=== PATIENT | male | born 1945 | race Caucasian/White ===

== ENCOUNTER 2017-06-05 08:35 | Day surgery (SDC) | payer OTHER ==
--- NOTE | 2017-05-30 08:57 | RAD REPORT ---
EXAM DESCRIPTION: RADOP - Outpt Chest Pa/Lat (2 Views) - 05/30/2017 8:46 am CLINICAL HISTORY: Chest pain. COMPARISON: 09/10/2013 FINDINGS: The lungs are clear. The heart is normal in size. No displaced fractures. Sternotomy wires present. IMPRESSION: No acute or concerning finding suspected.
[2017-05-30 09:34] LABS: Absolute Lymphocytes (CBC) 2.3 K/uL (0.7-4.9); Absolute Monocytes 0.7 K/uL (0.1-1.3); Absolute Neutrophil 4.7 K/uL (1.8-8.0); Basophils % 0.8 % (0-1.3); Eosinophils % 2.3 % (0-4.4); Hematocrit 46.8 % (39.6-49.0); Lymphocytes % 28.6 % (15.3-44.8); MCH 29.5 pg (27.0-35.0); MPV 8.3 fL (7.6-11.3); Monocytes % 8.5 % (3.3-12.3); RBC Red Blood Cell Count 5.37 M/uL (4.33-5.43)
[2017-05-30 10:01] LABS: Potassium 4.1 mEq/L (3.6-5.0)
--- NOTE | 2017-05-30 10:21 | EKG ---
Test Date: 2017-05-30 Test Time: 08:30:27 Clinical Educator: JODY MEASUREMENT RESULTS: Intervals: Rate: 52 MI: 220 QRSD: 98 QT: 434 QTc: 403 [place]: P: 17 MI: 220 QRS: -23 T: 75 INTERPRETIVE STATEMENTS: Sinus bradycardia with 1st degree AV block Nonspecific T wave abnormality Abnormal ECG Compared to ECG 07/27/2003 22:34:00 First degree AV block now present T-wave abnormality still present Electronically Signed On 05-30-17 10:21:15 CDT by Dmitri Fuller
[2017-06-05] MEDS ORDERED: Ringers Lactate 1,000 ML IV ONE (09:16)
[2017-06-05] MEDS ORDERED: CEFAZOLIN/SWI 1gm 1 GM/10 ML SYR ONE (09:16)
[2017-06-05] MEDS ORDERED: PROPOFOL 200 MG/20 ML VIAL IV ONE (09:58)
[2017-06-05] MEDS ORDERED: LIDOCAINE 2% MPF 5 ML VIAL ONE (09:58)
[2017-06-05] MEDS ORDERED: MIDAZOLAM HCL 2 MG/2 ML INJ ONE (09:58)
[2017-06-05] MEDS ORDERED: ONDANSETRON 4 MG/2 ML VIAL ONE (09:59)
[2017-06-05] MEDS ORDERED: ROCURONIUM 50 MG/5 ML VIAL IV ONE (10:00)
[2017-06-05] MEDS ORDERED: FENTANYL CITR 100 MCG/2 ML ONE (10:00)
[2017-06-05] MEDS ORDERED: GLYCOPYRROLATE 0.2 MG/ML SYR ONE (11:07)
[2017-06-05] MEDS: MEPERIDINE HCL 50 MG/ML AMP ONE ×2 (11:11→11:25)
[2017-06-05] MEDS ORDERED: NEOSTIGMINE 1 MG/ML -5 ML SYRINGE ONE (11:11)
[2017-06-05] MEDS ORDERED: MEPERIDINE HCL 25 MG/0.5 ML ONE (12:01)
[2017-06-05] MEDS ORDERED: HYDROCODONE/APAP 7.5/325 MG TAB ONE (12:48)
--- NOTE | 2017-06-05 21:33 | OP ---
Date of Procedure: 06/05/2017 Surgeon: Marco A Peterson MD Tar Chaser: ARNAV Fernandez. Preoperative Diagnosis: Ventral hernia. Postoperative Diagnosis: Ventral hernia. Procedure: Repair of ventral hernia with Ventralex mesh. Estimated Blood Loss: Minimal. Specimens: Hernia sac and contents. Findings: As above. Anesthesia: General. Complications: None. Disposition: The patient tolerated the procedure in stable condition and taken to Recovery in good g eneral condition. Procedure In Detail: The patient was brought to the OR, placed in the supine position, and general a nesthesia was begun. The patient was prepped and draped in the usual sterile fashion. Marcaine 0.5% was infiltrated locally. A #15 blade was used to make a 4-cm incision in the epigastrium over the h ernia. Subcutaneous tissue was divided. Hernia sac contents identified, excised with good fascial e dges obtained approximately 3 cm in diameter. A medium size Ventralex mesh placed and then #1 PDS us ed to close the fascial defect as well as secure the mesh in the standard fashion and the tails of th e mesh was cut. Wound was irrigated. Bleeding controlled with cautery. A 3-0 chromic was used to a pproximate the subcutaneous tissue and close the skin. Sterile dressing was applied. The patient was awakened and taken to Recovery in good general condition. /MODL Voice ID: [id number] Report ID: [id number]
--- NOTE | 2017-06-05 21:48 | DS ---
Date of Discharge: 06/05/2017 The patient will go to Day Surgery and home when stable. Disposition: Home. Condition: Stable. Discharge Instructions: Resume home medications and diet. Activity as tolerated. No heavy lifting. Remove outer dressing in 2 days. Shower. Keep wound clean and dry. Follow up in my office in 1 w tribal. Call for appointment. Tylenol No. 3, one tablet p.o. q.4 p.r.n. pain. Keep Steri-Strips on at all times, abdominal binder, and incentive spirometry. /MODL Voice ID: [id number] Report ID: [id number]
== END 2017-06-05 13:03 | disposition home or self-care (01) ==
LOC: OR 08:35
PROVIDERS: ATTEND Surgery
PROC: 0WUF0JZ Supplement Abdominal Wall with Synthetic Substitute, Open Approach (ICD-10-PCS; principal; 2017-06-05 10:00)
DX: K43.9 Ventral hernia without obstruction or gangrene (principal); I25.10 Atherosclerotic heart disease of native coronary artery without angina pectoris; K21.9 Gastro-esophageal reflux disease without esophagitis; Z95.1 Presence of aortocoronary bypass graft
CPT/HCPCS: 36415; 49560; 49568; 71046; 80048; 85025; 88302; 93005; J0690; J2175 ×2; J2250; J2405; J2710; J3010; 88305

== ENCOUNTER 2021-04-08 06:07 | Day surgery (SDC) | payer OTHER ==
[2021-04-04 11:34] LABS: Absolute Lymphocytes (CBC) 2.4 K/uL (0.7-4.9); Hematocrit 52.6 % (39.6-49.0); Lymphocytes % 30.2 % (15.3-44.8); MPV 7.3 fL (7.6-11.3); RBC Red Blood Cell Count 6.13 M/uL (4.33-5.43)
[2021-04-04 11:35] LABS: Protime INR 1.01
--- NOTE | 2021-04-04 12:16 | RAD REPORT ---
EXAM DESCRIPTION: RAD - Chest Pa And Lat (2 Views) - 04/04/2021 11:33 am CLINICAL HISTORY: Pre op pending rotator cuff repair COMPARISON: Chest Pa And Lat (2 Views) dated 10/29/2017; CHEST PA AND LAT 2 VIEW dated 09/10/2013; CHES T PA AND LAT 2 VIEW dated 06/16/2010 FINDINGS: Lines: None. Lungs: No evidence of edema or pneumonia. Pleural: No significant pleural effusions or pneumothorax. Cardiac: The heart size is within normal limits. Bones: No acute fractures. Other: Sternotomy IMPRESSION: No acute cardiopulmonary disease.
[2021-04-04 12:33] LABS: Blood Morphology Comment NOT SEEN (NOT SEEN); Platelet Estimate ADEQ; Platelets, Giant PRESENT
[2021-04-08] MEDS ORDERED: Ringers Lactate 1,000 ML IV ONE (06:14)
[2021-04-08] MEDS ORDERED: CEFAZOLIN/SWI 2gm 2 GM/20 ML SYR ONE (06:14)
[2021-04-08] MEDS ORDERED: LIDOCAINE 1% MPF 5 ML VIAL ONE (06:38)
[2021-04-08] MEDS ORDERED: FENTANYL CITR 100 MCG/2 ML ONE ×2 (06:40→07:22)
[2021-04-08] MEDS ORDERED: MIDAZOLAM HCL 2 MG/2 ML INJ ONE (06:40)
[2021-04-08] MEDS ORDERED: ROPLVACAINE HCL 40 ML ONE (06:40)
[2021-04-08] MEDS ORDERED: dexAMETHasone 4 MG/ML VIAL ONE (06:40)
[2021-04-08] MEDS ORDERED: LIDOCAINE 2% MPF 5 ML VIAL ONE (07:18)
[2021-04-08] MEDS ORDERED: GLYCOPYRROLATE 0.2 MG/ML SYR ONE (07:18)
[2021-04-08] MEDS ORDERED: propofoL 200 MG/20 ML VIAL IV ONE (07:18)
[2021-04-08] MEDS ORDERED: ROCURONIUM 50 MG/5 ML VIAL IV ONE (07:20)
[2021-04-08] MEDS ORDERED: ONDANSETRON 4 MG/2 ML VIAL ONE (07:22)
[2021-04-08] MEDS ORDERED: KETOROLAC 30 MG/ML INJ ONE (07:23)
[2021-04-08] MEDS ORDERED: dexAMETHasone 10 MG/ML VIAL ONE (07:23)
[2021-04-08] MEDS ORDERED: EPINEPHRINE/PF 1 MG/ML AMP ONE (07:28)
[2021-04-08] MEDS ORDERED: EPHEDRINE SULF 50 MG/ML VIAL ONE (09:03)
--- NOTE | 2021-04-08 10:15 | P.BOP ---
Preoperative diagnosis: right rotator cuff tear, bicipital tenosynovitis, impingement syndrome Postoperative diagnosis: right rotator cuff tear, SLAP tear, impingement syndrome Primary procedure: right shoulder arthroscopic rotator cuff repair Secondary procedure: right shoulder arthroscopic biceps tenotomy Other procedure(s): right shoulder arthroscopic subacromial decompression Estimated blood loss: 5 cc Specimen: none Findings: see dictation Anesthesia: General Complications: None Implants: 1- 5.5 mm arthrex corkscrew, 2- 4.75 mm arthrex swivelock Fluids & blood products: per anesthesia record Transferred to: Recovery Room Condition: Good
--- NOTE | 2021-04-08 10:40 | RAD REPORT ---
EXAM DESCRIPTION: RAD - Shoulder 1 View - 04/08/2021 10:35 am CLINICAL HISTORY: s/p r rotator cuff repair COMPARISON: No comparisons FINDINGS/IMPRESSION: Immediate postoperative changes of the right shoulder. No fractures seen.
[2021-04-08] MEDS ORDERED: HYDROCODONE/APAP 7.5/325 MG TAB ONE (12:04)
[2021-04-08 14:18] VITALS: BP 133/72; TEMP 97.3
[2021-04-08 14:21] VITALS: O2SAT 96
--- NOTE | 2021-04-16 06:04 | OP ---
Date of Procedure: 04/08/2021 Surgeon: Joe Contreras MD Preoperative Diagnoses: 1.Right shoulder rotator cuff tear. 2.Right shoulder bicipital tenosynovitis. 3.Right shoulder impingement syndrome. Postoperative Diagnoses: 1.Right shoulder rotator cuff tear. 2.Right shoulder superior labral anterior to posterior tear. 3.Right shoulder impingement syndrome. Procedures Performed: 1.Right shoulder arthroscopic rotator cuff repair. 2.Right shoulder arthroscopic biceps tenotomy. 3.Superior labral anterior to posterior tear debridement. 4.Right shoulder arthroscopic subacromial decompression. Anesthesia: General endotracheal. Fluids: Per Anesthesia record. Estimated Blood Loss: 5 cc. Complications: None. Implants: 1.5.5 mm Arthrex corkscrew. 2.4.75 mm Arthrex [place]. Indication For Procedure: Mr. Lawler is a 75-year-old male presented to my clinic with signs, sympt oms, and MRI findings consistent with a right shoulder rotator cuff tear. I discussed with the patie nt at length risks and benefits associated with operative and nonoperative treatment. He expressed u nderstanding, elected to proceed with operative treatment. Description Of Procedure: After informed consent was obtained, the patient was identified in the pre operative holding area. The right upper extremity was marked. The patient was then brought back to the PACU where he underwent an interscalene block to his right upper extremity, performed by Anesthes ia. He was then brought back to the operating room, transferred to the operative table in supine fas hion and placed under general endotracheal anesthesia. He was then placed in the beach chair positio n with exudates. Extremities well padded. The right upper extremity was then prepped and draped in usual sterile fashion. A time-out was initiated. The correct patient and procedure were confirmed a nd identified. The patient did receive his preoperative prophylactic antibiotics. A spinal needle w as then introduced in the glenohumeral joint via the posterior portal position and the shoulder was i njected with 30 cc of normal saline. A posterior portal was then created. Arthroscope was brought i n via the posterior portal position. A diagnostic arthroscopy was performed under direct visualizati on, and anterior portal and cannula were created and the patient was noted to have a type 1 SLAP tear with some fraying noted over the superior labrum. A biceps tenotomy was performed using arthroscopi c meniscal biters and biceps tendon was released. Arthroscopic shaver was then used to perform a SLA P tear debridement to smooth borders. There was no instability noted to the superior labrum. There were no tears of the anterior posterior labral. Subscapularis was found to be intact. The patient w as noted to have some undersurface fraying and tearing of the supraspinatus. There were no significa nt chondromalacia changes noted in the glenoid surface or humeral head. The arthroscope was then bro ught into the subacromial space, where a subacromial bursectomy was performed. The rotator cuff tear was again noted on the bursal side, which was more noticeable than on the articular side. The patie nt was noted to have a delaminated type tear of the rotator cuff. This was debrided using arthroscop ic shaver. The greater tuberosity was debrided using arthroscopic shaver. A single or double loaded 5.5 mm Arthrex corkscrew was then placed over the greater tuberosity and the suture limbs were then passed through the rotator cuff tear in an anterior to posterior fashion. The suture limbs were then tied in a horizontal mattress fashion and then crisscrossed and then reinforced using two lateral an chors to increase surface areas of the repair. Remaining suture limbs were then cut. Undersurface o f the acromion was then debrided using a radiofrequency ablator and acromioplasty was performed using an arthroscopic elizabeth. Arthroscopic instruments were then removed without complication. Wounds were then irrigated thoroughly with normal saline. Portals were approximated using a 3-0 Monocryl. Ster ile dressings were applied. The patient was placed in a shoulder immobilizer, awakened, and transfer red to PACU in stable condition. Postoperative Plan: The patient will follow medium rotator cuff repair protocol 4 weeks postoperativ susan and follow up in 1 week for wound check and dressing changes. CV/MODL Voice ID: [id number] Report ID: [id number]
== END 2021-04-08 12:35 | disposition home or self-care (01) ==
LOC: OR 06:07
PROVIDERS: ATTEND Orthopaedic Surgery Sports Medicine
PROC: 0RNJ4ZZ Release Right Shoulder Joint, Percutaneous Endoscopic Approach (ICD-10-PCS; 2021-04-08)
PROC: 0RBJ4ZZ Excision of Right Shoulder Joint, Percutaneous Endoscopic Approach (ICD-10-PCS; 2021-04-08)
PROC: 0LQ14ZZ Repair Right Shoulder Tendon, Percutaneous Endoscopic Approach (ICD-10-PCS; principal; 2021-04-08 08:00)
DX: S43.431A Superior glenoid labrum lesion of right shoulder, initial encounter (principal); S46.011A Strain of muscle(s) and tendon(s) of the rotator cuff of right shoulder, initial encounter; M75.21 Bicipital tendinitis, right shoulder; M75.41 Impingement syndrome of right shoulder; Z20.822 Contact with and (suspected) exposure to COVID-19
CPT/HCPCS: 85025; 80048; 36415; 85610; 85730; 71046; 73020; 29827; 29826; 29822; U0002; J2704; J1100 ×2; J0171; J2250; J3010 ×2; J2795; J0690; J7120; J2405

== ENCOUNTER 2021-09-07 08:25 | Day surgery (SDC) | payer OTHER ==
[2021-09-07 08:38] LABS: Absolute Lymphocytes (CBC) 1.9 K/uL (0.7-4.9); Hematocrit 47.2 % (39.6-49.0); Lymphocytes % 33.4 % (15.3-44.8); MPV 7.2 fL (7.6-11.3); RBC Red Blood Cell Count 5.62 M/uL (4.33-5.43)
[2021-09-07 08:47] LABS: SARS-CoV-2 Antigen Rapid Res Negative (Negative)
[2021-09-07 08:51] LABS: Potassium 3.9 mmol/L (3.5-5.1)
[2021-09-07] MEDS ORDERED: Ringers Lactate 1,000 ML IV ONE (08:51)
[2021-09-07] MEDS ORDERED: propofoL 200 MG/20 ML VIAL IV ONE (10:35)
[2021-09-07] MEDS ORDERED: MIDAZOLAM HCL 2 MG/2 ML INJ ONE (10:35)
[2021-09-07] MEDS ORDERED: FENTANYL CITR 100 MCG/2 ML ONE (10:35)
[2021-09-07] MEDS ORDERED: ONDANSETRON 4 MG/2 ML VIAL ONE (10:38)
[2021-09-07] MEDS ORDERED: LIDOCAINE 2% MPF 5 ML VIAL ONE (10:38)
[2021-09-07] MEDS ORDERED: CEFAZOLIN SODIUM 1 GM/VIAL ONE (11:02)
--- NOTE | 2021-09-07 11:06 | EKG ---
Test Date: 2021-09-07 Test Time: 08:13:50 Chain Sales Representative: KERRY MEASUREMENT RESULTS: Intervals: Rate: 48 ME: 270 QRSD: 100 QT: 422 QTc: 376 [place]: P: 14 ME: 270 QRS: -33 T: 113 INTERPRETIVE STATEMENTS: Marked sinus bradycardia with 1st degree AV block Left axis deviation Nonspecific T wave abnormality Abnormal ECG Compared to ECG 05/30/2017 08:30:27 Left-axis deviation now present T-wave abnormality still present Electronically Signed On 09-07-21 11:05:32 CDT by Calderon Beckman
[2021-09-07] MEDS: BUPIVACAINE 0.5% Inj,MDV 50 mL VIAL ONE ×2 (11:46→11:51)
[2021-09-07] MEDS ORDERED: GLYCOPYRROLATE 0.2 MG/ML SYR ONE (11:50)
[2021-09-07] MEDS ORDERED: dexAMETHasone 4 MG/ML VIAL ONE (11:55)
--- NOTE | 2021-09-07 12:02 | P.BOP ---
Preoperative diagnosis: right upper quarter backer subQ mass Postoperative diagnosis: same Primary procedure: 1. Excisional biopsy right upper quarter backer subQ mass 6x6cm Secondary procedure: 2. Layer closure Restorative Aide: LIVIER TIPTON (DEHAIRER) Estimated blood loss: <10c Specimen: mass Findings: mass deep to fascia of muscle Anesthesia: General Complications: None Transferred to: Recovery Room Condition: Good
[2021-09-07 12:27] VITALS: O2SAT 100
--- NOTE | 2021-09-07 12:50 | OP ---
Date of Procedure: 09/07/2021 Surgeon: Deshawn Whaley MD Junior Oracle Dba: Amanda Collier. Preoperative Diagnosis: Right upper cloth washer back tender subcutaneous mass. Postoperative Diagnosis: Right upper cloth washer back tender subcutaneous mass. Procedures: 1.Excisional biopsy of right upper cloth washer back tender subcutaneous mass 6 x 6 cm. 2.Layered closure. Estimated Blood Loss: Less than 10 mL. Specimen: Mass. Finding: Mass deep to fascia of the muscle. Anesthesia: General plus local. Complications: None. Indication: This is the case of a 75-year-old patient, who comes to us with increasing in size mass on the right upper back with tenderness. The patient wants that excised. The benefits, alternatives , and risks of excision fully explained, which include, but not limited to infection, bleeding, damag e to adjacent structures, anesthesia complication, recurrence, [place], and even . He also understan ds this may not relieve any symptoms. He might need more than one surgical intervention. He underst ood, signed a consent. Procedure In Detail: The patient was brought to the operating room, placed in supine position. Anes thesia was done without complication. The patient was placed in lateral decubitus position with prop er protection. Right upper back was prepped and draped in the usual sterile fashion. We marked this area previously in the holding room. So, we made an incision in that area and then we went about 2 cm deep and then after that, we have found that this mass is deep the next to the muscle include part of the fascia of the muscle, so the mass was dissected bluntly and some of the fascia of the muscle have to come with the mass. The mass was completely excised in 1 unit. The area was irrigated. Hem ostasis was obtained. Local anesthesia was applied. Then, we proceeded to close these fascial edges . We have the muscle. We approximated that with a combination of chromic stitches, then mid layers with chromic stitches, then subcu with chromic, and then the skin with Dermabond. Hemostasis was obt ained before closure, irrigation too, and also we placed local anesthetic before closure. The patien t tolerated the procedure well. The patient on his way to recovery in stable condition. ENRIQUETA/ONELL Voice ID: [id number] Report ID: [id number]
--- NOTE | 2021-09-07 12:50 | DS ---
Diagnosis: Tender right upper back subcutaneous mass. Procedure: Excisional biopsy of tender right upper back subcutaneous mass. Disposition: Home. Activity: As tolerated. No heavy lifting. Plan: Follow up in my office in 1 week. Call for appointment at [phone]. Remove dressings tomorro w and then may shower. Keep Dermabond intact. Medications: See orders. ENRIQUETA/ANNETTE Voice ID: [id number] Report ID: [id number]
[2021-09-07] MEDS ORDERED: MORPHINE 4 MG/ML SYR ONE (13:10)
[2021-09-07] MEDS ORDERED: KETOROLAC 30 MG/ML INJ ONE (13:11)
[2021-09-07 14:18] VITALS: BP 155/70; TEMP 96.7
== END 2021-09-07 14:13 | disposition home or self-care (01) ==
LOC: OR 08:25
PROVIDERS: ATTEND Surgery
PROC: 0JB70ZZ Excision of Back Subcutaneous Tissue and Fascia, Open Approach (ICD-10-PCS; principal; 2021-09-07 09:15)
DX: D17.1 Benign lipomatous neoplasm of skin and subcutaneous tissue of trunk (principal); Z20.822 Contact with and (suspected) exposure to COVID-19
CPT/HCPCS: 93005; 85025; 80048; 36415; 88304; 87811; 11406; J2704; J1100; J2250; J3010; J7120; J2405; J0690; 88305

== ENCOUNTER 2023-03-02 13:08 | Day surgery (SDC) | payer OTHER ==
[2023-03-01 09:28] LABS: Absolute Lymphocytes (CBC) 2.5 K/uL (0.7-4.9); Hematocrit 47.7 % (39.6-49.0); Lymphocytes % 34.5 % (15.3-44.8); MCV 86.6 fL (80-100); MPV 7.7 fL (7.6-11.3); Platelets 253 thou/uL (152-406)
[2023-03-01 09:32] LABS: Protime INR 1.13
[2023-03-01 09:45] LABS: Potassium 3.7 mEq/L (3.5-5.1)
--- NOTE | 2023-03-01 10:12 | RAD REPORT ---
EXAM DESCRIPTION: RAD - Chest Pa And Lat (2 Views) - 03/01/2023 9:26 am CLINICAL HISTORY: Pre op pending heart catheterization COMPARISON: Chest Pa And Lat (2 Views) dated 04/04/2021; Chest Pa And Lat (2 Views) dated 10/29/2017; CHEST PA AND LAT 2 VIEW dated 09/10/2013; CHEST PA AND LAT 2 VIEW dated 06/16/2010 TECHNIQUE: PA and lateral views of the chest were obtained. FINDINGS: The lungs are clear. Heart size is normal and central vasculature is within normal limits. Sequelae of median sternotomy. No pleural effusion or pneumothorax seen. No acute bony finding noted . IMPRESSION: No acute cardiopulmonary process.
[2023-03-02] MEDS ORDERED: VERAPAMIL HCL 10 MG/4 ML VIAL IV ONE (13:17)
[2023-03-02] MEDS ORDERED: LIDOCAINE 1% 20 ML MDV ONE ×2 (13:17→14:01)
[2023-03-02] MEDS ORDERED: HEPA 1000U/500MLS 2,000 UNIT/1,000 ML BAG IV ONE (13:17)
[2023-03-02] MEDS ORDERED: FENTANYL CITR 100 MCG/2 ML ONE (13:18)
[2023-03-02] MEDS ORDERED: HEPARIN 10,000 UNIT/10 ML VIAL IV ONE (13:19)
[2023-03-02] MEDS ORDERED: ATROPINE SULF 1 MG/10 ML SYR IV ONE (13:19)
[2023-03-02] MEDS ORDERED: MIDAZOLAM HCL 2 MG/2 ML INJ ONE (13:19)
[2023-03-02] MEDS ORDERED: HEPARIN 5000 UNIT/ML 1 ML VIAL ONE (13:19)
[2023-03-02] MEDS ORDERED: TICAGRELOR 90 MG TABLET PO ONE (13:19)
[2023-03-02] MEDS ORDERED: ASPIRIN 325 MG TAB ONE (13:20)
[2023-03-02] MEDS ORDERED: CLOPIDOGREL 75 MG TABLET ONE (13:20)
[2023-03-02] MEDS ORDERED: NA CHLORIDE 0.9% 500 ML ONE (13:23)
[2023-03-02 15:21] VITALS: TEMP 97.5
--- NOTE | 2023-03-02 16:08 | OP ---
Date of Procedure: 03/02/2023 Surgeon: HANNAH PEÑA Procedures Performed: 1.Selective coronary angiogram with bypass graft study. 2.Right heart catheterization. Indication: Recent drop in ejection fraction. Access: Right femoral artery 6-Georgian closed with 6-Georgian Angio-Seal. Complications: None. Bleeding: Less than 20 mL. Description Of Procedure: After risks, benefits, and alternatives were explained, the patient agreed to procedure and signed informed consent. Patient was brought into cardiac catheterization laborato , prepped and draped in the usual sterile fashion. We then gave incremental doses of fentanyl and Versed to achieve adequate moderate sedation. Total sedation time was 1 hour, and then I accessed [facility] femoral artery using micropuncture kit, ultrasound guidance, fluoroscopy, placed a 6-Georgian Pinna reggie sheath, took 6-Georgian JL4 catheter into the aortic root over a J-wire, engaged the left main, too k standard views and exchanged for 6-Georgian JR4 catheter and engaged the RCA, took standard views, an d across the aortic valve over the wire and measured the LVEDP and pullback did not record any gradie nt. Then I exchanged for 4-Georgian EARLINE catheter and engaged the TIJERINA, took standard views and using t he 6-Georgian JR4 catheter, the SVG graft to left circumflex and SVG graft to RCA were engaged and jovanni dard views were obtained. I then removed all the catheters and the sheath and placed a 6-Georgian Zina o-Seal for closure with good hemostasis. Findings: 1.Left main; distal 80% stenosis. 2.LAD; proximal diffuse 80% stenosis, multiple tandem lesions and diagonal 1 branch has mid 80% sten osis, but it is very small, about 1 mm vessel. LAD in the mid segment is long, 60% stenosis. 3.Left circumflex; proximal 80% to 90% stenosis, multiple lesions. 4.RCA; proximal diffuse 80% and then become CUTTER OPERATOR ASBESTOS SHINGLE 100% occluded. Bypass Graft Study: 1.Widely patent TIJERINA to LAD. 2.Patent SVG to left circumflex. 3.Patent SVG to RCA. 4.Normal LVEDP at 9 mmHg. Conclusion: 1.Severe [place] coronary artery disease with patent grafts. 2.Normal LVEDP. Recommendation: Plan for medical management. Probably start him on Entresto and re-evaluate after m aximizing the dose. SR/MODL Voice ID: [id number] Report ID: [id number]
[2023-03-02 16:59] VITALS: BP 138/88; O2SAT 96
== END 2023-03-02 17:01 | disposition home or self-care (01) ==
LOC: CCL 13:08
PROVIDERS: ATTEND Internal Medicine
DX: I25.10 Atherosclerotic heart disease of native coronary artery without angina pectoris (principal); I25.82 Chronic total occlusion of coronary artery; I44.1 Atrioventricular block, second degree; I13.0 Hypertensive heart and chronic kidney disease with heart failure and stage 1 through stage 4 chronic kidney disease, or unspecified chronic kidney disease; N18.30 Chronic kidney disease, stage 3 unspecified; I50.9 Heart failure, unspecified; I65.23 Occlusion and stenosis of bilateral carotid arteries; E78.5 Hyperlipidemia, unspecified; Z79.899 Other long term (current) drug therapy; Z95.5 Presence of coronary angioplasty implant and graft; Z82.49 Family history of ischemic heart disease and other diseases of the circulatory system
CPT/HCPCS: 85025; 80048; 36415; 83721; 85610; 85730; 71046; 93459; 76937; C1893; Q9966; C1760; G0269; J2001 ×2; J2250; J3010; J7040; 99152; 99153; J0461; J1644

== ENCOUNTER 2024-11-30 20:05 | Emergency (ER) | payer OTHER ==
--- NOTE | 2024-11-30 20:35 | EDPHYS ---
Physician Documentation [facility] Name: King Lawler Age: 78 yrs Sex: Male : 1945 Arrival Date: 11/30/2024 Time: 20:05 Bed 19 Private MD: ED Physician Murtaza Mathis HPI: 11/30 20:34 This 78 yrs old Male presents to ER via Ambulatory with complaints of fish hook in kb finger. 20:34 Patient is a 78-year-old male who presents for fishhook in left thumb that occurred kb just prior to arrival. States he did try to pull it out but was unable to. Last tetanus shot within 5 years.. Historical: - Allergies: 20:15 No Known Allergies; cp4 - Immunization history:: Adult Immunizations up to date, Last tetanus immunization: up to date < 5 years ago. - Infectious Disease History:: Denies. - Social history:: Smoking status: Patient denies any tobacco usage or history of. ROS: 20:33 Constitutional: As per HPI kb Exam: 20:33 Constitutional: This is a well developed, well nourished patient who is awake, alert, kb and in no acute distress. Head/Face: Normocephalic, atraumatic. ENT: Moist Mucous membranes Respiratory: Respirations even and unlabored. No increased work of breathing. Talking in full sentences MS/ Extremity: Pulses equal, no cyanosis. Neurovascular intact. Full, normal range of motion. Neuro: Awake and alert, GCS 15, oriented to person, place, time, and situation. 20:33 Skin: injury, puncture(s), that are superficial, of the dorsal aspect of distal phalanx of left thumb, Vital Signs: 20:14 BP 137 / 77; Pulse 70; Resp 18; Temp 98.1; Pulse Ox 98% ; Weight 90.72 kg; Height 5 ft. cp4 11 in. ; Pain 0/10; 20:47 BP 136 / 75; Pulse 60; Resp 18; Temp 97.9; Pulse Ox 100% on R/A; kj2 20:14 Body Mass Index 27.89 (90.72 kg, 180.34 cm) cp4 20:14 Pain Scale: Adult cp4 Procedures: 20:32 Foreign Body Removal: a fishhook, from the left dorsal aspect of distal phalanx of left kb thumb, by Lidocaine injected around fishhook, fishhook pushed through the skin and removed. Dressing: Band-Aid, The patient tolerated the removal well. MDM: 20:10 Medical Screening Exam initiated kb 20:33 Differential diagnosis: Laceration, fracture, puncture wound with foreign body. Data kb reviewed: vital signs, nurses notes. Test considered but Not performed: X-ray: X-ray considered but foreign body superficial. Counseling: I had a detailed discussion with the patient and/or guardian regarding the historical points, exam findings, and any diagnostic results supporting the discharge/admit diagnosis, the need for outpatient follow up, a family practitioner, to return to the emergency department if symptoms worsen or persist or if there are any questions or concerns that arise at home. Administered Medications: 20:20 Drug: Lidocaine Infiltration (1 %) 1 vials 5 ml Infiltration once; to bedside {Note: kj2 administered by provider.} Volume: 5 ml; Route: Infiltration; 20:50 Follow up: Response: No adverse reaction kj2 20:48 Drug: Doxycycline PO 100 mg PO once Route: PO; kj2 20:48 Follow up: Response: Medication administered at discharge. kj2 Disposition: 12/01 02:17 Co-signature as Attending Physician, Murtaza Mathis MD I agree with the assessment sp4 and plan of care. I reviewed the patient's care provided by the Advanced Practice Provider and agree with the diagnosis and treatment plan. Disposition Summary: 11/30/24 20:35 Discharge Ordered Notes: Location: Home kb Condition: Stable kb Diagnosis - Puncture wound with foreign body of left thumb with damage to nail, initial kb encounter - [place] removed Followup: kb - With: Emergency Department - When: As needed - Reason: Worsening of condition Followup: kb - With: Private Physician - When: 2 - 3 days - Reason: Recheck today's complaints, Continuance of care, Re-evaluation by your physician Discharge Instructions: - Discharge Summary Sheet kb - Puncture Wound, [id number] kb - [place] Removal kb Forms: - Medication Reconciliation Form kb - Antibiotic Education kb - Prescription Opioid Use kb - Patient Portal Instructions kb - Leadership Thank You Letter kb Prescriptions: - Doxycycline Hyclate 100 mg Oral Tablet - take 1 tablet ORAL route every 12 hours; 20 tablet; Refills: 0, Product kb Selection Permitted Signatures: Joy Kan PREMIUM CARD CANCELLATION CLERK-C PREMIUM CARD CANCELLATION CLERK-Ckb Murtaza Mathis MD MD sp4 Marcella Mcfarlane cp4 Lorie Viramontes, RN RN kj2
--- NOTE | 2024-11-30 20:35 | ER ---
Nurse's Notes [facility] Name: King Lawler Age: 78 yrs Sex: Male : 1945 Arrival Date: 11/30/2024 Time: 20:05 Bed 19 Private MD: Diagnosis: Puncture wound with foreign body of left thumb with damage to nail, initial encounter-Lodge removed Presentation: 11/30 20:14 Chief complaint: Patient states: fish hook in the left thumb that happened an hour ago. cp4 Coronavirus screen: Client denies travel out of the [place] in the last 14 days. At this time, the client does not indicate any symptoms associated with coronavirus-19. Ebola Screen: Patient negative for fever greater than or equal to 101.5 degrees Fahrenheit, and additional compatible Ebola Virus Disease symptoms Patient denies exposure to infectious person. Patient denies travel to an Ebola-affected area in the 21 days before illness onset. No symptoms or risks identified at this time. Initial Sepsis Screen: Does the patient meet any 2 criteria? No. Patient's initial sepsis screen is negative. Does the patient have a suspected source of infection? No. Patient's initial sepsis screen is negative. Risk Assessment: Do you want to hurt yourself or someone else? Patient reports no desire to harm self or others. Onset of symptoms was November 30, 2024 at 19:00. 20:14 Method Of Arrival: Ambulatory cp4 20:14 Acuity: KATIE 4 cp4 Triage Assessment: 20:15 General: Appears in no apparent distress. comfortable, Behavior is calm, cooperative, cp4 appropriate for age. Pain: Denies pain. Historical: - Allergies: 20:15 No Known Allergies; cp4 - Immunization history:: Adult Immunizations up to date, Last tetanus immunization: up to date < 5 years ago. - Infectious Disease History:: Denies. - Social history:: Smoking status: Patient denies any tobacco usage or history of. Screenin:28 [facility] ED Fall Risk Assessment (Adult) History of falling in the last 3 months, kj2 including since admission No falls in past 3 months (0 pts) Confusion or Disorientation No (0 pts) Intoxicated or Sedated No (0 pts) Impaired Gait No (0 pts) Mobility Assist Device Used No (0 pt) Altered Elimination No (0 pt) Score/Fall Risk Level 0 - 2 = Low Risk Maintained a safe environment, Hourly rounding (assess needs \T\ fall precautionary measures) done. Abuse screen: Denies threats or abuse. Denies injuries from another. Nutritional screening: No deficits noted. Tuberculosis screening: No symptoms or risk factors identified. Assessment: 20:27 General: Appears in no apparent distress. Behavior is cooperative. Pain: Complains of kj2 pain in left thumb Pain currently is 7 out of 10 on a pain scale. Neuro: Level of Consciousness is awake, alert, obeys commands, Oriented to person, place, time, situation. Cardiovascular: Patient's skin is warm and dry. Respiratory: Airway is patent Respiratory effort is even, unlabored. GI: No signs and/or symptoms were reported involving the gastrointestinal system. : No signs and/or symptoms were reported regarding the genitourinary system. Vital Signs: 20:14 BP 137 / 77; Pulse 70; Resp 18; Temp 98.1; Pulse Ox 98% ; Weight 90.72 kg; Height 5 ft. cp4 11 in. ; Pain 0/10; 20:47 BP 136 / 75; Pulse 60; Resp 18; Temp 97.9; Pulse Ox 100% on R/A; kj2 20:14 Body Mass Index 27.89 (90.72 kg, 180.34 cm) cp4 20:14 Pain Scale: Adult cp4 ED Course: 20:08 Patient arrived in ED. al6 20:10 Joy Kan F[facility]-C [facility]. kb 20:10 Murtaza Mathis MD is Attending Physician. kb 20:15 Triage completed. cp4 20:15 Arm band placed on right wrist. Patient placed in waiting room. cp4 20:22 Lorie Viramontes RN is Primary Nurse. kj2 20:28 Patient has correct armband on for positive identification. Provided Education on: call kj2 light. 20:50 No provider procedures requiring assistance completed. Patient did not have IV access kj2 during this emergency room visit. Administered Medications: 20:20 Drug: Lidocaine Infiltration (1 %) 1 vials 5 ml Infiltration once; to bedside {Note: kj2 administered by provider.} Volume: 5 ml; Route: Infiltration; 20:50 Follow up: Response: No adverse reaction kj2 20:48 Drug: Doxycycline PO 100 mg PO once Route: PO; kj2 20:48 Follow up: Response: Medication administered at discharge. kj2 Medication: 20:51 VIS not applicable for this client. kj2 Outcome: 20:35 Discharge ordered by . kb 20:50 Discharged to home ambulatory, kj2 20:50 Condition: stable 20:50 Discharge instructions given to patient, Instructed on discharge instructions, follow up and referral plans. Demonstrated understanding of instructions, follow-up care, medications, Prescriptions given X 1, 20:51 Patient left the ED. kj2 Signatures: Joy Kan, RECORDIST-C ROBERT-Marcella Bhakta cp4 Lorie Viramontes, RN RN kj2 Mague Christiansen al6
[2024-11-30] MEDS ORDERED: DOXYCYCLINE 100 MG CAP PO ONE (20:38)
[2024-11-30 21:30] VITALS: BP 136/75; TEMP 97.9; O2SAT 100
== END 2024-11-30 20:51 | disposition home or self-care (01) ==
LOC: ER 20:05
DX: S61.142A Puncture wound with foreign body of left thumb with damage to nail, initial encounter (principal)
CPT/HCPCS: 99283